=== PATIENT | male | born 1995 | race Caucasian/White ===

== ENCOUNTER 2019-10-02 18:50 | Emergency (ER) | payer SELFPAY ==
[~2019-10-02] VITALS: Ht 182.9 cm; Wt 181.8 kg
[2019-10-02 18:54] VITALS: BP 167/98; PULSE 94; TEMP 99.4
== END 2019-10-02 20:09 | disposition home or self-care (01) ==
LOC: COL.ER 18:50
DX: S61.211A Laceration without foreign body of left index finger without damage to nail, initial encounter (principal); Z23 Encounter for immunization; Z88.0 Allergy status to penicillin; F17.210 Nicotine dependence, cigarettes, uncomplicated; W26.8XXA Contact with other sharp object(s), not elsewhere classified, initial encounter; Y92.59 Other trade areas as the place of occurrence of the external cause